=== PATIENT | female | born 1950 | race Caucasian/White ===

== ENCOUNTER → 2018-02-24 | Outpatient (CLI) | payer BC ==
[2018-02-24 13:22] LABS: HCT 42.5 % (34.0-46.0); HGB 14.4 gm/dL (11.4-16.0); MCH 31.6 pg (25.0-35.0); MCV 93.1 fL (80.0-100.0); Mean Platelet Volume 6.8; Platelet Count 205 k/uL (150-450); RBC 4.57 m/uL (3.80-5.40); RDW 13.9 % (11.5-15.5)
[2018-02-24 13:34] LABS: INR 1.1 (<1.2); Partial Thromboplastin Time 23.8 sec (22.0-30.0); Prothrombin Time 10.4 sec (9.0-12.0)
[2018-02-24 13:35] LABS: Appearance,Urine Clear (Clear); Bacteria,Urine Rare /hpf; Bilirubin,Urine Negative (Negative); Blood,Urine Negative (Negative); Color,Urine Yellow; Glucose,Urine (UA) Negative (Negative); Ketones,Urine Negative (Negative); Leukocyte Esterase,Urine Trace (Negative); Mucus,Urine Occasional /hpf; Nitrite,Urine Negative (Negative); PH, Urine 6.5 (5.0-8.0); Protein,Urine Trace (Negative); Specific Gravity,Urine 1.023 (1.001-1.035); Squamous Epithelial Cell,Urine 2 /hpf (0-4); WBC,Urine 1 /hpf (0-5)
[2018-02-24 13:53] LABS: ALT 27 U/L (9-52); AST 36 U/L (14-36); Alkaline Phosphatase 67 U/L (38-126); Anion Gap 7 mmol/L; Blood Urea Nitrogen 13 mg/dL (7-17); Calcium 9.2 mg/dL (8.4-10.2); Carbon Dioxide 29 mmol/L (22-30); Chloride 102 mmol/L (98-107); Glucose 127 mg/dL (74-99); Potassium 4.4 mmol/L (3.5-5.1); Sodium 138 mmol/L (137-145); Total Bilirubin 0.5 mg/dL (0.2-1.3); Total Protein 6.4 g/dL (6.3-8.2)
== END | disposition home or self-care (01) ==
LOC: LABWHC1 12:35
PROVIDERS: ATTEND Orthopaedic Surgery Sports Medicine
DX: Z01.818 Encounter for other preprocedural examination (principal); Z01.812 Encounter for preprocedural laboratory examination
CPT/HCPCS: 36415; 80053; 81001; 85027; 85610; 85730; 87070; 93005

== ENCOUNTER 2018-03-16 11:00 | Inpatient (IN) | payer BC ==
[2018-03-06 09:54] VITALS: BMI 40.4
[~2018-03-16 11:00] MED LIST: ACETAMINOPHEN TAB 500 MG TAB PO ONE; DEXAMETHASONE SOD PHOSPHATE 10 MG/ML 1 ML VIAL IV ONE; HYDROmorphone 0.5 MG/0.5 ML SYRINGE IVP PRN; LACTATED RINGERS 1,000 ML IV SCH; LIDOCAINE 1% 20 ML VIAL (10MG/ML) FOR IV START INTRADERMA PRN; MIDAZOLAM 2 MG/2 ML VIAL IV PRN; ONDANSETRON 4 MG/2 ML VIAL IVP ONE; SCOPOLAMINE 1.5MG/72HR PATCH TRANSDERM ONE; TRANEXAMIC ACID 1,000 MG in SODIUM CHLORIDE 0.9% 50 ML IVPB ONE
[2018-03-16] MEDS ORDERED: ROPIVACAINE 246.25 MG, EPINEPHrine 0.5 MG, KETOROLAC 30 MG, cloNIDine HCL/PF 80 MCG, WA... MISCELLANE ONE ×5 (11:13)
[2018-03-16] MEDS ORDERED: LIDOCAINE 1% INJ 10MG/ML (20 ML MDV) ONE (13:32)
[2018-03-16] MEDS ORDERED: ePHEDrine SULFATE/0.9% NACL/PF 50 MG/5 ML SYRINGE IV ONE (13:32)
[2018-03-16] MEDS ORDERED: fentaNYL (PF) 50 MCG/ML 2 ML AMP ONE (13:32)
[2018-03-16] MEDS ORDERED: MIDAZOLAM 2 MG/2 ML VIAL ONE (13:32)
[2018-03-16] MEDS ORDERED: SODIUM CHLORIDE 0.9% 100 ML BAG ONE (13:32)
[2018-03-16] MEDS ORDERED: PROPOFOL 10 MG/ML 20 ML VIAL IV ONE (13:32)
[2018-03-16] MEDS ORDERED: TRANEXAMIC ACID 1,000 MG/10 ML VIAL ONE (13:32)
[2018-03-16] MEDS ORDERED: MORPHINE SULFATE (PF) 0.3 MG/0.3 ML SYR ONE (13:32)
[2018-03-16] MEDS ORDERED: ceFAZolin 3,000 MG in SODIUM CHLORIDE 0.9% IRRIGATIO 3,000 ML IRRIGATION ONE (14:04)
[2018-03-16] MEDS ORDERED: LACTATED RINGERS 1,000 ML IV ONE (14:13)
[2018-03-16] MEDS ORDERED: BISACODYL 10 MG SUPP RECTAL PRN (15:28)
[2018-03-16] MEDS ORDERED: MAGNESIUM HYDROXIDE 2,400 MG/10 ML CUP PO PRN (15:28)
[2018-03-16] MEDS ORDERED: TEMAZEPAM 15 MG CAP PO PRN (15:28)
[2018-03-16] MEDS ORDERED: DIAZEPAM 5 MG TAB PO PRN (15:28)
[2018-03-16] MEDS ORDERED: hydrOXYzine PAMOATE 25 MG CAP PO PRN (15:28)
[2018-03-16] MEDS ORDERED: ONDANSETRON 4 MG/2 ML VIAL IVP PRN (15:28)
[2018-03-16] MEDS ORDERED: NA PHOS,M-B/NA PHOS,DI-BA 133 ML ENEMA RECTAL PRN (15:28)
[2018-03-16] MEDS ORDERED: HYDROmorphone 1 MG/ML 1 ML SYRINGE IVP PRN ×3 (15:28)
[2018-03-16] MEDS ORDERED: NALOXONE 0.4 MG/ML 1 ML VIAL IV PRN ×2 (15:28→17:15)
[2018-03-16] MEDS ORDERED: traMADol 50 MG TAB PO PRN (15:28)
[2018-03-16] MEDS ORDERED: oxyCODONE-APAP 5-325MG 1 EACH TAB PO PRN (15:33)
--- NOTE | 2018-03-16 15:54 | XR ---
EXAMINATION TYPE: XR knee limited LT DATE OF EXAM: 03/16/2018 CLINICAL HISTORY: Left knee pain and arthritis status post total knee replacement. TECHNIQUE: Portable AP and crosstable lateral views of the left knee are obtained immediately postop eratively. COMPARISON: None FINDINGS: Metallic hardware from total left knee arthroplasty is seen and appears satisfactory in al ignment and position. There is evidence of recent surgery with diffuse subcutaneous gas and soft tis rachel swelling noted. IMPRESSION: METALLIC HARDWARE FROM TOTAL LEFT KNEE ARTHROPLASTY IS SATISFACTORY IN ALIGNMENT.
[2018-03-16] MEDS ORDERED: ceFAZolin 3 GM in SODIUM CHLORIDE 0.9% 100 ML IVPB SCH (16:00)
[2018-03-16] MEDS ORDERED: PROMETHAZINE INJ 6.25 MG in SODIUM CHLORIDE 0.9% 50 ML IVPB PRN (17:15)
[2018-03-16] MEDS ORDERED: NALBUPHINE 10 MG/ML VIAL (10ML MDV) IV PRN (17:15)
[2018-03-16] MEDS ORDERED: METOCLOPRAMIDE 5 MG/ML 2 ML VIAL IVP PRN (17:15)
--- NOTE | 2018-03-16 19:05 | OP ---
OPERATIVE REPORT DATE OF PROCEDURE: 03/16/2018 PREOPERATIVE DIAGNOSIS: Left knee osteoarthrosis. POSTOPERATIVE DIAGNOSIS: Left knee osteoarthritis. OPERATION: Left total knee arthroplasty. SURGEON: César Ndiaye MD HUNTING AND FISHING GUIDE: AILYN López. ANESTHESIA: Spinal with sedation. ESTIMATED BLOOD LOSS: 100 mL. TOURNIQUET TIME: 45 minutes at 250 mmHg. COMPLICATIONS: None apparent. DRAINS: None. DISPOSITION: Postanesthesia care unit. INDICATIONS: Cherrie is a very pleasant 67-year-old female with longstanding history of left knee pain. History and physical examination are consist with advanced left knee osteoarthrosis. She has been through a significant nonoperative management up to this point. Further treatment options were discussed and she decided to go for the left total knee arthroplasty. The risks of procedure were discussed with her in detail. These risks include, but are not limited to risk of infection, nerve damage, bleeding, pain and risk of deep vein thrombosis which could lead to fatal pulmonary embolism. There is also risk of loosening of the implant which could require revision operation. The patient understands these risks. All of her questions were answered to her satisfaction. Appropriate informed consent was obtained. DESCRIPTION OF PROCEDURE: The patient identified in preoperative holding area. Surgical sites marked by both the patient and myself. She was given 2 g of Ancef IV for prophylactic purposes. She was then transferred to the operative suite. She was placed supine on the operative table. Spinal anesthetic was then administered and dosed per the anesthesia without apparent complication. Examination under anesthesia was then performed. The patient was 2-3 degrees shy of full extension. She had 95 degrees of flexion in the medial collateral ligament. Lateral collateral ligament and posterior cruciate ligaments were stable. Tourniquet was then placed high on the left upper thigh well-padded in preparation for surgery. The patient's left lower extremity was then prepped and draped in usual sterile fashion. Standard surgical pause undertaken to ensure that we were operating the correct site and that appropriate preoperative antibiotics were given. All staff in the room in agreement and we proceeded. The outlines of the patella were marked surgical pen. A planned 12 cm vertical incision centered over the patella was marked surgical pen. Leg was exsanguinated with an Esmarch dressing. The knee was then flexed and tourniquet was inflated to 250 mmHg. The total tourniquet time for the procedure was 45 minutes. Incision was then made with a 10 blade scalpel. Dissection was carried down sharply overlying fascia. Great care was taken to minimize the skin flaps. The knee was then exposed using standard medial parapatellar approach. A small cuff of quadriceps tendon was then left for suturing. She was in a bit of varus preoperatively. A standard medial release was then made. Superficial medial collateral ligament was dissected off the bone around the posterior aspect of the proximal tibia. The medial meniscus was then excised as well. The lateral meniscus was also released anteriorly. The leg was then externally rotated. The patella was everted. The knee was flexed. The retractors then placed to protect the collateral ligaments. I then proceeded to remove the infrapatellar fat pad. This was excised sharply tangentially with fibers of the patellar tendon. I then proceeded to remove the peripheral osteophytes. This is done with a rongeur. I then proceeded with the distal femoral resection. She did have near full extension. A planned 9 mm resection was done. The femoral canal was then entered in the midline of the femur approximately 10 mm anterior to the origin of the origin of the posterior cruciate ligament. The tiffany was then advanced down the center of the femur and placed intramedullary. Based on preoperative radiographs and the angle between the anatomic and mechanical axis, the femur was approximately 4-5 degrees. The valgus angle the distal femur femoral cutting guide was then set at 4 degrees for the left knee. The distal femoral cutting guide was then advanced over the intramedullary tiffany. This was seated firmly against the femur. I then as mentioned planned to take 9 mm off the distal femur. The cutting block was then secured onto the femur with pins. The jig was then removed. The distal femoral cutting cut was made through the slot of the block. The pins were then removed. The distal femoral cutting block was removed. The accuracy of the distal femoral cuts was checked with 2 flat bars. I then proceed to femoral sizing. Posterior referencing sizing guide was held firmly against the resected distal surface of the femur. The posterior condyles were resting on the posterior plane of the guide. The sizing stylus was then placed on the anterior femur. This size was measured as a size 9. I then assessed for femoral rotation. Plan was for 3 degrees of external rotation. Three degrees of external rotation was placed onto the jig. These holes were then marked. I then confirmed the rotation by 3 separate methods. This was done using epicondylar axis as well as Whitesides line and posterior referencing. It was deemed that the external rotation was proper. I then went forward placing the femoral cutting block. This placed over the over the previously placed pin holes. The Mio wing was then placed onto the anterior slots to ensure that we would not notch the anterior femur with the anterior femoral cut. I then proceed with the anterior femoral cut. This was flush with the anterior cortex of the femur. Posterior cuts were then made followed by the anterior chamfer cut, then the posterior chamfer cut. The cutting block was then removed. Throughout the resection, the collateral ligaments were protected with retractors. I then placed a trial size 9 femur. It fit very nicely medial to lateral and fit flush with the distal end of the femur. The drill holes were then made. I then proceeded with tibial cut. I planned for cruciate retaining knee. The guide was placed and set for varus valgus and for slope. The height was set for approximate 2 mm resection from the medial tibial plateau which was the lower side. I was happy with the alignment amount of resection. The cutting block was then pinned to the proximal tibia. The alignment tiffany was removed. The proximal tibia was resected with a reciprocating saw. Again this was done with retractors protecting the collateral ligaments as well as the posterior cruciate ligament. I then proceeded to evaluate the flexion extension gaps. A 10 mm block was placed. The flexion-extension gaps were equal. I then proceeded with resection of posterior osteophytes. She had very minimal posterior osteophytes. This was done using a curved osteotome. This resected this resected the posterior osteophytes and posterior capsule stripping was done off the posterior aspect of the femur at this time. The osteophytes were then removed. I then proceed to resection of the patella. The thickness of patella was measured using the caliper. The thickness was 22 mm. The thickness of the anticipated patellar dome was taken into account. Resection was then performed and confirmed to be equal in 4 quadrants using a caliper. Approximately 14 mm of bone remained after resection. A 32 x 8.5 mm standard patellar trial was then placed. The holes were drilled. The trial was then placed. I then proceed with sizing tibial plate. A size F tibial plate fit very nicely. I then placed the trial femur the tibial tray and patellar button. A 10 mm trial tibial insert was also placed. The components fit very nicely. She had full extension and flexion. The extension and flexion gaps were equal and stable. The patella tracked to both varus and valgus stress. The patella tracked appropriately. The tibial tray rotation was marked with a Bovie. This was externally rotated properly. I then proceed with tibial preparation. First drilled the femoral holes and removed femoral component. The tibial tray was then set for proper external rotation as well as mediolateral placement onto the tibia. It was then pinned into place. I then proceeded with punching the keel. I then decided to proceed with cementing of all of our components. The knee was thoroughly irrigated with sterile saline solution via pulse lavage. The lateral geniculate artery was identified and cauterized. All blood was removed from the bone of the tibia femur and patella with pulse lavage. I then proceed with cementing. Two packs of antibiotic bone cement were prepared on the back table by the registered nurse surgical services. I then proceeded with cementing the tibia first. The cement was impacted into the keel as well as deeply seated in the bone. A second coat of cement was then placed. The tibia was then impacted into place. Excess cement was removed with Paris's and Joker's. I then proceed with cementing the femoral component. The femoral component was also cemented using standard technique. Excess cement was removed. A 10 mm trial insert was then placed into the knee. It was brought into full extension with a constant axial load placed until the cement had hardened. The patellar component was then cemented. This held firmly with a compressive device until the cement had dried. When the cement had dried, the knee was taken out of extension. All excess cement was removed from around the prosthesis. I then trialed the knee with a 10 mm insert. The flexion-extension gaps were appropriate. I then trialed a 12 mm insert. The flexion- extension gaps felt better. The knee was stable with a 12 mm insert. It came into full extension. I decided to go for the 12 mm cross-linked cruciate-retaining tibial insert. Polyethylene was then placed onto the hip tibial tray and locked into place. The knee was reduced. The knee was again further irrigated with sterile saline solution with antibiotic added. The tourniquet was then deflated. Total tourniquet time for the procedure was 45 minutes at 250 mmHg. Final components were Liz Persona size 9 cruciate-retaining femoral component, a size F tibial tray, a 12 mm medial congruent cruciate-retaining polyethylene insert and a 32 x 8.5 mm patella. I then proceeded with closure. Again, the knee was thoroughly irrigated. The quadriceps and tendon and the medial retinaculum were reapproximated with #2 Ethibond suture. The extensor mechanism was then closed with a running #2 Quill suture. Subcutaneous tissues were then closed with 2 Vicryl suture. The skin was closed with running 3-0 Quill suture. Dermabond was applied to the incision. Sterile compressive dressings were then applied. All sponge and needle counts were deemed correct prior to closure. The patient tolerated the procedure without apparent complication. She was transferred recovery room in stable condition. MMODL / IJN: [id number] /
[2018-03-16] MEDS: GABAPENTIN 300 MG CAP PO SCH (21:06)
[2018-03-16] MEDS: SENNOSIDES-DOCUSATE SODIUM 1 EACH TAB PO SCH (21:06)
[2018-03-16] MEDS: CITALOPRAM HYDROBROMIDE 20 MG TAB PO SCH (21:06)
[2018-03-16] MEDS: ASPIRIN 325 MG TAB PO SCH (21:06)
[2018-03-16] MEDS: ALLOPURINOL 300 MG TAB PO SCH (21:06)
[2018-03-16] MEDS: LACTATED RINGERS 1,000 ML IV SCH (21:47)
--- NOTE | 2018-03-16 21:59 | CONS ---
CONSULTATION DATE OF CONSULTATION: 03/16/2018 REASON FOR CONSULTATION: Medical management requested by Dr. Ndiaye. CONSULTATION: This is a pleasant 67-year-old patient of Dr. Quinonez out of [place]. Chronic stable medical conditions include peripheral neuropathy, hypertension and osteoarthritis in multiple joints. The patient has undergone a left total knee arthroplasty. Pain is controlled. No nausea, vomiting. Denies any cardiac history. Did tolerate some supper. Propped up in bed, sitting up. REVIEW OF SYSTEMS: CONSTITUTIONAL: None. HEENT: None. RESPIRATORY: None. CARDIOVASCULAR: None. GASTROINTESTINAL: None. GENITOURINARY: Urinary stress incontinence. DERMATOLOGICAL: None. HEMATOLOGICAL: None. LYMPHATICS: None. PSYCHIATRY: None. NEUROLOGICAL: None. MUSCULOSKELETAL: Arthritic pain in many joints. Numbness and tingling in the feet. PAST MEDICAL HISTORY: 1. Hypertension. 2. Osteoarthritis. 3. Peripheral neuropathy. 4. Urinary stress incontinence. PAST SURGICAL HISTORY: 1. Back surgery. 2. Eye surgery x2. 3. Bilateral cataract surgery. 4. Carpal tunnel surgery. 5. Spinal surgery for spinal stenosis. SOCIAL HISTORY: Does not smoke or drink alcohol. . FAMILY HISTORY: Breast cancer. HOME MEDICATIONS: 1. Verapamil ER 240 mg a day. 2. Triamterene hydrochlorothiazide 37.5 one tablet p.o. daily. 3. Fish oil 1 capsule p.o. daily. 4. Centrum Women's Tablets 1 tablet p.o. daily. 5. Singulair 10 mg p.o. daily. 6. Antivert 12.5 p.o. q.i.d. p.r.n. 7. Rosalia 10 one tablet p.o. t.i.d. 8. Neurontin 300 mg p.o. t.i.d. 9. Voltaren 75 mg p.o. b.i.d. 10.Celexa 40 mg at bedtime. 11.Vitamin D3 5000 units p.o. b.i.d. 12.Allopurinol 300 mg at bedtime. ALLERGIES: NONE. PHYSICAL EXAMINATION: Temperature 98, pulse 77, respiration 16, blood pressure 105/64, pulse ox 92% on nasal cannula. GENERAL APPEARANCE: Well built; BMI 40.5. Sitting up, comfortable. EYES: Pupils equal. Conjunctivae normal. HEENT: External appearance of nose and ears normal. Oral cavity normal. NECK: JVD not raised. Mass not palpable. RESPIRATORY: Effort normal. LUNGS: Fair air entry. CARDIOVASCULAR: First and second sounds normal. No edema. ABDOMEN: Soft, non-tender. Liver and spleen not palpable. LYMPHATIC: No lymph node palpable in neck or axillae. PSYCHIATRY: Alert and oriented x3. Mood and affect normal. NEUROLOGICAL: Pupils equal.. Cranial nerves grossly intact. Power and sensation grossly intact. MUSCULOSKELETAL: Evidence of osteoarthritis, especially in the hands. Dressing on the left knee. INVESTIGATIONS: Blood work from 02/25/18 showed white count 8, hemoglobin 14.4, potassium 4.4. BUN and creatinine were normal. ASSESSMENT: 1. Left total knee arthroplasty. 2. Essential hypertension. 3. Primary osteoarthritis in multiple joints, bilateral. 4. Peripheral neuropathy, idiopathic. 5. Chronic urinary stress incontinence. 6. Morbid obesity; body mass index 40.5. PLAN: Home medications are resumed. Pain medications per Dr. Ndiaye. Patient is getting aspirin for DVT prophylaxis. Care was discussed with the patient as well as a little bit about weight loss measures. Did agree to see a dietitian for weight loss diet. Thank you, Dr. Ndiaye. MMODL / IJN: [id number] /
[2018-03-17] MEDS: LACTATED RINGERS 1,000 ML IV SCH ×2 (03:31→09:49)
[2018-03-17 07:08] LABS: Basophils % (A) 0 %; Eosinophils % (A) 0 %; HGB 12.9 gm/dL (11.4-16.0); Lymphocytes # (A) 1.5 k/uL (1.0-4.8); Lymphocytes % (A) 9 %; MCH 31.1 pg (25.0-35.0); MCHC 33.2 g/dL (31.0-37.0); MCV 93.6 fL (80.0-100.0); Mean Platelet Volume 7.2; Monocytes # (A) 0.8 k/uL (0-1.0); Monocytes % (A) 5 %; Neutrophils # (A) 14.3 k/uL (1.3-7.7); Neutrophils % (A) 85 %; Platelet Count 201 k/uL (150-450); RBC 4.16 m/uL (3.80-5.40); RDW 13.9 % (11.5-15.5); WBC 16.7 k/uL (3.8-10.6)
--- NOTE | 2018-03-17 07:12 | P.PN ---
Progress Note - Text Date:03/17 Time:620am Patient is status post tkr. Patient seen this morning with VAS score of 2. c/o of pruritus, no c/o nausea/vomiting, comfortable and doing well.
[2018-03-17] MEDS: ASPIRIN 325 MG TAB PO SCH ×2 (08:19→21:45)
[2018-03-17] MEDS: GABAPENTIN 300 MG CAP PO SCH ×3 (08:19→21:45)
[2018-03-17] MEDS: MULTIVITAMINS, THERA 1 EACH TAB PO SCH (08:19)
[2018-03-17] MEDS: MONTELUKAST 10 MG TAB PO SCH (08:19)
[2018-03-17] MEDS: VERAPAMIL SR 240 MG TABLET.ER PO SCH (08:23)
[2018-03-17] MEDS ORDERED: IRON PO SCH (09:00)
[2018-03-17] MEDS ORDERED: MULTIVITAMIN PO SCH (09:00)
[2018-03-17] MEDS ORDERED: FOLIC ACID PO SCH (09:00)
--- NOTE | 2018-03-17 09:11 | P.PN ---
Subjective Progress Note Date: 03/17/18 Principal diagnosis: S/P Left TKA Patient is seen at bedside this morning. She is postop day #1 from Left Total Knee arthroplasty. She has pain at the surgical site as expected but denies any new complaints. She denies numbness, tingling or calf pain. Review of systems is negative for fever, chills, chest pain, shortness of breath or other Objective - Vital Signs Vital signs: Vital Signs Temp 98.6 F 03/17/18 07:19 Pulse 87 03/17/18 07:19 Resp 18 03/17/18 07:19 BP 129/73 03/17/18 07:19 Pulse Ox 96 03/17/18 07:19 Intake & Output 03/16/18 03/17/18 03/17/18 18:59 06:59 18:59 Intake Total 1751 1500 240 Output Total 100 125 Balance 1651 1375 240 Intake: IV 1751 Intake, IV Titration 1500 Amount Lactated Ringers 1,000 ml 1350 @ 100 mls/hr IV .Q10H EDI Rx#:[id number] ceFAZolin 3 gm In Sodium 150 Chloride 0.9% 50 ml @ 100 mls/hr IVPB Q8H EDI Rx#: [id number] Oral 240 Output: Urine 125 Estimated Blood Loss 100 Other: Voiding Method Bedside Commode # Voids 1 - Exam Inspection reveals a benign surgical wound. There is no active bleeding or drainage. Neurovascular status is intact throughout the lower extremity with motor and sensation fully intact. Calf is soft and nontender. 2+ dorsalis pedis pulse and less than 2 second cap refill is present - Constitutional General appearance: Present: no acute distress - Psychiatric Psychiatric: Present: A&O x's 3, appropriate affect, intact judgment & insight - Labs CBC & Chem 7: 03/17/18 06:23 Labs: Abnormal Lab Results - Last 24 Hours (Table) 03/17/18 Range/Units 06:23 WBC 16.7 H (3.8-10.6) k/uL Neutrophils # 14.3 H (1.3-7.7) k/uL Assessment and Plan (1) Osteoarthritis of left knee Narrative/Plan: She will continue with routine postop orthopedic protocol including pain management, wound care, physical therapy, DVT prophylaxis and medical management. Expect that she will discharge to home tomorrow. Current Visit: Yes Status: Acute Priority: Medium Code(s): M17.12 - UNILATERAL PRIMARY OSTEOARTHRITIS, LEFT KNEE SNOMED Code(s): 100189152680325 Time with Patient: Less than 30
[2018-03-17] MEDS: diphenhydrAMINE 50 MG/ML 1 ML VIAL IVP PRN ×2 (09:40→16:12)
[2018-03-17] MEDS: oxyCODONE-APAP 5-325MG 1 EACH TAB PO PRN ×2 (12:46→19:07)
--- NOTE | 2018-03-17 14:00 | PN ---
PROGRESS NOTE DATE OF SERVICE: 03/17/18 PRESENTING COMPLAINT: Left knee surgery. INTERVAL HISTORY: Patient is status post left total knee arthroplasty. Pain is better controlled. Did walk in the hallway. No nausea, vomiting, did tolerate her breakfast. No dizziness, lightheadedness. at the bedside. The patient is keen to go home as opposed to rehab. Wants to work on that. REVIEW OF SYSTEMS: Done for constitutional, cardiovascular, GI, pulmonary, musculoskeletal; relevant findings as above. CURRENT MEDICATIONS: Reviewed. PHYSICAL EXAMINATION: On examination; Temperature 98.6, pulse 87, respiratory 18, blood pressure 129/73, pulse 96% on 2 L. GENERAL APPEARANCE: Sitting up, comfortable. EYES: Pupils equal. Conjunctivae normal. HEENT: External appearance of nose and ears normal. Oral cavity normal. NECK: JVD not raised. Mass not palpable. RESPIRATORY: Effort, lungs are clear. CARDIOVASCULAR 1st and 2nd sounds, no edema. ABDOMEN: Soft, nontender. Liver and spleen not palpable. PSYCHIATRY: Alert and oriented x3. Mood and affect normal. INVESTIGATIONS: White count 16.7, hemoglobin 12.9. ASSESSMENT: 1. Left total knee arthroplasty, incision healing well per Orthopedics. 2. Essential hypertension. 3. Primary osteoarthritis of multiple joints bilateral. 4. Peripheral neuropathy idiopathic. 5. Chronic urinary stress incontinence. 6. Morbid obesity, BMI 40.5. 7. Leukocytosis likely postop reactive. No clinical evidence of infection. Patient has no new urinary symptoms and no respiratory symptoms. Incision healing well. PLAN: Continue current medication and treatment plan. Care was discussed with the patient. MMODL / IJN: [id number] /
[2018-03-17 14:10] VITALS: RESP 16
[2018-03-17] MEDS: SENNOSIDES-DOCUSATE SODIUM 1 EACH TAB PO SCH (21:45)
[2018-03-17] MEDS: ALLOPURINOL 300 MG TAB PO SCH (21:45)
[2018-03-17] MEDS: CITALOPRAM HYDROBROMIDE 20 MG TAB PO SCH (21:45)
[2018-03-18] MEDS: oxyCODONE-APAP 5-325MG 1 EACH TAB PO PRN ×2 (06:21→12:36)
--- NOTE | 2018-03-18 08:45 | P.DS ---
Providers Date of admission: 03/16/18 11:00 Expected date of discharge: 03/18/18 Attending physician: César Ndiaye Consults: 03/16/18 15:28 Consult Physician Routine Consulting Provider: Jose Quinonez Consult Reason/Comments: post op medical management Do you want consulting provider notified?: Yes 03/16/18 16:49 Consult Physician Routine Consulting Provider: Mane Churchill Consult Reason/Comments: medical management Do you want consulting provider notified?: Yes Primary care physician: Jose Quinonez - Discharge Diagnosis(es) (1) Osteoarthritis of left knee Current Visit: Yes Status: Acute Priority: Medium (2) Status post total left knee replacement Current Visit: Yes Status: Acute Hospital Course: This is a pleasant 67-year-old female last seen in our office with complaints of left knee pain. Patient has known history of degenerative arthritis of the left knee and presented to discuss options. After discussion and consideration , the patient elected to proceed with a left total knee arthroplasty. Patient was seen preoperatively, and medically cleared for surgery by her primary care physician. Patient was admitted to [facility] underwent left total knee arthroplasty on 03/16/[address] Ndiaye. The procedure was performed without complications or sequelae. The patient is seen and evaluated at bedside today. Pain is well-controlled. Patient has no new complaints today and denies any fevers, chills, nausea, vomiting, or shortness of breath. Vital signs are stable. Dressing is clean dry and intact. Incision looks fine with no erythema or active drainage. Calf is soft and nontender. Patient has full foot and ankle motion without difficulty. Patient's left lower extremity is neurovascularly intact. The patient is orthopedically stable for discharge today. Pertinent Studies: Laboratory Tests 03/17/18 06:23 WBC 16.7 H RBC 4.16 Hgb 12.9 Neutrophils # 14.3 H Patient Condition at Discharge: Stable Plan - Discharge Summary Discharge Rx Participant: Yes New Discharge Prescriptions: New RX: Aspirin 325 mg PO BID #60 tab Docusate [Colace] 100 mg PO BID #60 capsule oxyCODONE-APAP 5-325MG [Percocet 5-325 mg] 1 tab PO Q4HR PRN 3 Days #28 tab PRN Reason: Pain No Action RX: Ondansetron HCl 8 mg PO AC-TID PRN PRN Reason: Nausea Meclizine [Antivert] 12.5 mg PO QID PRN PRN Reason: Vertigo Cholecalciferol [Vitamin D3] 5,000 unit PO BID Montelukast Sodium [Singulair] 10 mg PO DAILY Diclofenac Sodium [Voltaren] 75 mg PO BID Verapamil HCl [Verapamil ER] 240 mg PO QAM HYDROcodone/APAP 10-325MG [[place] 10-325] 1 tab PO TID Gabapentin [Neurontin] 300 mg PO TID Allopurinol [Zyloprim] 300 mg PO HS Triamterene/Hydrochlorothiazid [Triamterene-Hctz 37.5-25 mg Tb] 1 tab PO QAM Clubb-3 Fatty Acids/Fish Oil [Fish Oil 1,000 mg Softgel] 1 cap PO DAILY Multivitamin/Iron/Folic Acid [Centrum Women Tablet] 1 tab PO DAILY RX: Citalopram Hydrobromide [Citalopram HBr] 40 mg PO HS Discharge Medication List Allopurinol [Zyloprim] 300 mg PO HS 03/06/18 [History] Cholecalciferol [Vitamin D3] 5,000 unit PO BID 03/06/18 [History] Diclofenac Sodium [Voltaren] 75 mg PO BID 03/06/18 [History] Gabapentin [Neurontin] 300 mg PO TID 03/06/18 [History] HYDROcodone/APAP 10-325MG [[place]ollywood 10-325] 1 tab PO TID 03/06/18 [History] Meclizine [Antivert] 12.5 mg PO QID PRN 03/06/18 [History] Montelukast Sodium [Singulair] 10 mg PO DAILY 03/06/18 [History] Multivitamin/Iron/Folic Acid [Centrum Women Tablet] 1 tab PO DAILY 03/06/18 [ History] Clubb-3 Fatty Acids/Fish Oil [Fish Oil 1,000 mg Softgel] 1 cap PO DAILY [History] RX: Citalopram Hydrobromide [Citalopram HBr] 40 mg PO HS 03/06/18 [History] RX: Ondansetron HCl 8 mg PO AC-TID PRN 03/06/18 [History] Triamterene/Hydrochlorothiazid [Triamterene-Hctz 37.5-25 mg Tb] 1 tab PO QAM [History] Verapamil HCl [Verapamil ER] 240 mg PO QAM 03/06/18 [History] Docusate [Colace] 100 mg PO BID #60 capsule 03/17/18 [Rx] RX: Aspirin 325 mg PO BID #60 tab 03/17/18 [Rx] oxyCODONE-APAP 5-325MG [Percocet 5-325 mg] 1 tab PO Q4HR PRN 3 Days #28 tab 05/25 [Rx] Follow up Appointment(s)/Referral(s): [facility], [NON-STAFF] - César Ndiaye MD [STAFF PHYSICIAN] - 03/31/18 1:45 pm Activity/Diet/Wound Care/Special Instructions: WBAT Keep wound clean and dry Take meds as directed F/U with Dr. Ndiaye in office Discharge Disposition: HOME WITH HOME HEALTH SERVICES
[2018-03-18] MEDS: LACTATED RINGERS 1,000 ML IV SCH (09:17)
[2018-03-18] MEDS: ASPIRIN 325 MG TAB PO SCH (12:36)
[2018-03-18] MEDS: GABAPENTIN 300 MG CAP PO SCH (12:36)
[2018-03-18] MEDS: VERAPAMIL SR 240 MG TABLET.ER PO SCH (12:37)
[2018-03-18] MEDS: MULTIVITAMINS, THERA 1 EACH TAB PO SCH (12:37)
[2018-03-18] MEDS: MONTELUKAST 10 MG TAB PO SCH (12:38)
[2018-03-18 14:55] VITALS: BP 156/85; PULSE 90; TEMP 99.1
== END 2018-03-18 14:45 | disposition home health service (06) | DRG 470 ==
LOC: 2ORMAIN 11:00 → 3SUR 15:38
PROVIDERS: ADMIT Orthopaedic Surgery Sports Medicine; ATTEND Orthopaedic Surgery Sports Medicine
PROC: 0SRD0J9 Replacement of Left Knee Joint with Synthetic Substitute, Cemented, Open Approach (ICD-10-PCS; principal; 2018-03-16 13:30)
DX: M17.12 Unilateral primary osteoarthritis, left knee (principal); Z68.41 Body mass index [BMI] 40.0-44.9, adult; E66.01 Morbid (severe) obesity due to excess calories; H90.5 Unspecified sensorineural hearing loss; I10 Essential (primary) hypertension; G60.9 Hereditary and idiopathic neuropathy, unspecified; N39.3 Stress incontinence (female) (male); M10.9 Gout, unspecified; E78.00 Pure hypercholesterolemia, unspecified; H69.90 Unspecified Eustachian tube disorder, unspecified ear; Z79.891 Long term (current) use of opiate analgesic; Z79.899 Other long term (current) drug therapy; Z87.891 Personal history of nicotine dependence; Z98.42 Cataract extraction status, left eye; Z98.41 Cataract extraction status, right eye; Z83.3 Family history of diabetes mellitus; Z82.49 Family history of ischemic heart disease and other diseases of the circulatory system; Z80.3 Family history of malignant neoplasm of breast
CPT/HCPCS: 85025; 88300; 94760

== ENCOUNTER → 2019-03-23 | Outpatient (CLI) | payer BC ==
[2019-03-23 10:58] LABS: African American GFR (CKD) >90 (>60 ml/min/1.73 sqM); Blood Urea Nitrogen 11 mg/dL (7-17)
--- NOTE | 2019-03-23 14:33 | CT ---
EXAMINATION TYPE: CT iac w con DATE OF EXAM: 03/23/2019 COMPARISON: 01/07/2012 HISTORY: Lt sided hearing loss CT DLP: 150 mGycm Automated exposure control for dose reduction was used. CONTRAST: CT scan of the IACs is performed with IV Contrast, patient injected with 100 mL of Isovue 300. FINDINGS: The external auditory canals are patent bilaterally. Mastoid air cells show no evidence of abnormal opacification bilaterally. The middle ear ossicles are symmetric and unremarkable. There is no evidence of suspicious surrounding soft tissue density to suggest cholesteatoma. The scutum is preserved bilaterally. The cochlea is symmetric and unremarkable. There is slight asymmetry in the left superior semicircle canal with asymmetric thinning at the superior portion on coronal image 24. These findings appear stable when compared to 01/07/2012. Vestibular aqueduct and internal carotid sandy l appear unremarkable. Temporomandibular joints are maintained bilaterally. There are a few opacifi ed right middle and posterior ethmoid air cells.. 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 These findings appear similar when compared to 01/07/2012. Otherwise, no evidence of internal auditory canal abnormality.
== END | disposition home or self-care (01) ==
LOC: RADCTMAIN 10:10
PROVIDERS: ATTEND Otolaryngology
DX: R42 Dizziness and giddiness (principal); H91.90 Unspecified hearing loss, unspecified ear; H93.19 Tinnitus, unspecified ear; H93.3X9 Disorders of unspecified acoustic nerve
CPT/HCPCS: 82565; 84520; 70481; 36415; Q9967

== ENCOUNTER → 2019-04-06 | Outpatient (CLI) | payer BC | END | disposition home or self-care (01) | LOC: NEUROMAIN 03-28 08:37 | PROVIDERS: ATTEND Otolaryngology | DX: Z53.9 Procedure and treatment not carried out, unspecified reason (principal) ==

== ENCOUNTER → 2020-06-04 | Outpatient (CLI) | payer BC ==
--- NOTE | 2020-06-06 11:05 | MM ---
Reason for exam: screening (asymptomatic). History: Patient is postmenopausal. Family history of breast cancer in sister at age 50. Physical Findings: A clinical breast exam by your physician is recommended on an annual basis and results should be correlated with mammographic findings. MG Screening Mammo w CAD Bilateral CC, MLO, and XCCL view(s) were taken. No prior studies available for comparison. There are scattered fibroglandular densities. There is no discrete abnormality. ASSESSMENT: Negative, BI-RAD 1 RECOMMENDATION: Routine screening mammogram of both breasts in 1 year.
== END | disposition home or self-care (01) ==
LOC: RADMAMWWP 10:52
PROVIDERS: ATTEND Family Medicine
DX: Z12.31 Encounter for screening mammogram for malignant neoplasm of breast (principal)
CPT/HCPCS: 77067

== ENCOUNTER → 2022-07-23 | Outpatient (CLI) | payer BC ==
[2022-07-23 19:17] LABS: T4, Free (Free Thyroxine) 1.05 ng/dL (0.800-1.800)
== END | disposition home or self-care (01) ==
LOC: LABWHC1 11:07
PROVIDERS: ATTEND Internal Medicine Interventional Cardiology
DX: R00.0 Tachycardia, unspecified (principal)
CPT/HCPCS: 36415; 84439; 84443